=== PATIENT | male | born 1995 | race Caucasian/White ===

== ENCOUNTER → 2023-06-11 | Outpatient (REF) | payer MEDICAID ==
[2023-06-11 14:54] LABS: SEMEN APPEARANCE OPAQUE (OPAQUE); SEMEN VISCOSITY LIQUID (LIQUID); SEMEN VOLUME 3.5 ml (2.0-5.0)
[2023-06-11 14:55] LABS: WBC CONCENTRATION <=1 M/ml (<=1 M/ml)
== END ==
LOC: M LAB REF 14:31
PROVIDERS: ATTEND Physician Assistant
DX: Z30.2 Encounter for sterilization (principal)